=== PATIENT | male | born 1980 | race Caucasian/White ===

== ENCOUNTER 2022-12-11 01:06 | Emergency (ER) | payer OTHER ==
[2022-12-11 02:49] LABS: CORONAVIRUS COVID-19 NAA NEGATIVE (NEGATIVE); INFLUENZA A NAA NEGATIVE (NEGATIVE); INFLUENZA B NAA NEGATIVE (NEGATIVE); RESPIRATORY SYNCYTIAL VIR NAA NEGATIVE (NEGATIVE)
[2022-12-11 03:21] LABS: ACETAMINOPHEN <2.0 ug/mL; BLOOD UREA NITROGEN,BUN 8 mg/dL (7.0-18.0); CHLORIDE,CL 104 mmol/L (98-107); ESTIMATED GFR 65 mL/min (>60); GLUCOSE RANDOM 115 mg/dL (74-106); POTASSIUM,K 3.5 mmol/L (3.5-5.1); SODIUM,NA 140 mmol/L (136-148)
[2022-12-11] MEDS ORDERED: metFORMIN 500 MG Tab PO ONE ×2 (05:45→07:00)
[2022-12-11] MEDS: Citalopram 20 MG Tab PO SCH ×2 (07:41→09:22)
[2022-12-11 12:03] VITALS: BP 158/95; PULSE 102
== END 2022-12-11 12:27 ==
LOC: MW.ED 01:06
DX: R45.851 Suicidal ideations (principal); F17.210 Nicotine dependence, cigarettes, uncomplicated; Z79.899 Other long term (current) drug therapy; Z20.822 Contact with and (suspected) exposure to COVID-19
CPT/HCPCS: 0241U; 36415; 80053; 80143; 80179; 80305; 80307; 81001; 83735; 84443; 85025; 93005; 99285; A9270; 93010

== ENCOUNTER 2025-02-19 21:05 | Emergency (ER) | payer OTHER ==
[2025-02-19] MEDS: Diphtheria,Pertussis(Acell),Tetanus Vaccine 0.5 ML Syringe IM ONE (21:15)
[2025-02-19] MEDS: Lidocaine 1% 5 ML VIAL INJECT ONE (21:15)
[2025-02-19 21:16] VITALS: BP 156/96; PULSE 75
[2025-02-19] MEDS: Sulfamethoxazole/Trimethoprim 800-160 MG Tab PO ONE (21:29)
== END 2025-02-19 22:13 | disposition home or self-care (01) ==
LOC: MW.ED 21:05
DX: S90.455A Superficial foreign body, left lesser toe(s), initial encounter (principal); Z75.3 Unavailability and inaccessibility of health-care facilities; Z79.51 Long term (current) use of inhaled steroids; Z79.899 Other long term (current) drug therapy; Z23 Encounter for immunization; W45.8XXA Other foreign body or object entering through skin, initial encounter; Y93.89 Activity, other specified
CPT/HCPCS: 73660; 90471; 90715; 99284; A9270; J2003; 99282

== ENCOUNTER 2025-02-24 19:52 | Emergency (ER) | payer OTHER ==
[2025-02-24] MEDS: Amoxicillin/Clavulanate K 875-125 MG Tab PO ONE (21:29)
[2025-02-24 21:47] VITALS: BP 135/88; PULSE 86
== END 2025-02-24 21:47 | disposition home or self-care (01) ==
LOC: MW.ED 19:52
DX: J32.9 Chronic sinusitis, unspecified (principal); E66.9 Obesity, unspecified; M19.90 Unspecified osteoarthritis, unspecified site; Z79.51 Long term (current) use of inhaled steroids; Z79.899 Other long term (current) drug therapy; Z68.41 Body mass index [BMI] 40.0-44.9, adult
CPT/HCPCS: 87426; 99283; A9270; 99282

== ENCOUNTER 2025-02-27 11:19 | Emergency (ER) | payer OTHER ==
[2025-02-27 12:04] LABS: BASOPHILS ABSOLUTE AUTO 0.01 K/uL (0.00-0.20); BASOPHILS PERCENT AUTO 0.2 % (0.0-1.0); EOSINOPHILS ABSOLUTE AUTO 0.02 K/uL (0.00-0.45); EOSINOPHILS PERCENT AUTO 0.4 % (0.0-6.0); IMMATURE GRAN ABSOLUTE AUTO 0.02 K/uL (0.00-0.05); IMMATURE GRAN PERCENT AUTO 0.4 % (0.0-0.4); LYMPHOCYTES ABSOLUTE AUTO 0.68 K/uL (1.00-4.80); LYMPHOCYTES PERCENT AUTO 14.3 % (24.0-44.0); MEAN PLATELET VOLUME 10.2 fL (9.4-12.4); MONOCYTES ABSOLUTE AUTO 0.15 K/uL (0.00-0.80); MONOCYTES PERCENT AUTO 3.2 % (0.0-8.0); NEUTROPHILS ABSOLUTE AUTO 3.88 K/uL (1.80-7.70); NEUTROPHILS PERCENT AUTO 81.5 % (41.0-71.0); NRBC ABSOLUTE 0.00 K/uL (0.00-0.02); NRBC PERCENT 0.0 /100WBC (0.0-0.2); PLATELET COUNT,PLT 188 K/uL (150-400); RED BLOOD CELL COUNT 4.81 M/uL (4.52-5.90); WHITE BLOOD CELL COUNT,WBC 4.76 K/uL (3.9-11.3)
[2025-02-27] MEDS: Ketorolac 30 MG/ML SDV IVPUSH ONE (12:05)
[2025-02-27] MEDS: diphenhydrAMINE 50 MG/ML SDV IVPUSH ONE (12:27)
[2025-02-27 12:34] LABS: LACTIC ACID 0.8 mmol/L (0.4-2.0)
[2025-02-27 12:47] LABS: A/G RATIO 1.0 (0.9-1.6); ALANINE AMINOTRANSFERASE,ALT 239.0 IU/L (14-63); ASPARTATE AMNIOTRANSFERASE,AST 274.0 IU/L (15-37); BILIRUBIN TOTAL 0.3 mg/dL (0.2-1.0); BLOOD UREA NITROGEN,BUN 14.0 mg/dL (7.0-18.0); CARBON DIOXIDE,CO2 20.4 mmol/L (21.0-32.0); CHLORIDE,CL 96.0 mmol/L (98-107); CREATININE 1.6 mg/dL (0.8-1.3); EST CRCL DRUG DOSING (CG) 64.06 mL/min; GLUCOSE RANDOM 122.0 mg/dL (74-106); POTASSIUM,K 4.4 mmol/L (3.5-5.1); PROTEIN TOTAL,TP 7.0 g/dL (6.4-8.2); SODIUM,NA 129.0 mmol/L (136-148)
[2025-02-27 12:48] LABS: ESTIMATED GFR 55.0 mL/min (>60)
[2025-02-27 13:07] LABS: APPEARANCE,URINE CLEAR; GLUCOSE,URINE NEGATIVE (NEGATIVE); OCCULT BLOOD,URINE NEGATIVE (NEGATIVE)
[2025-02-27] MEDS: Magnesium Sulfate 2 GM/50 mL 2 GM in Premix Bag 1 BAG IV ONE (13:13)
[2025-02-27] MEDS: Iopamidol 755 MG/ML 500 ML Multipack Bottle IVPUSH STA (14:34)
[2025-02-27 15:53] VITALS: BP 126/61; PULSE 85
== END 2025-02-27 15:52 | disposition home or self-care (01) ==
LOC: MW.ED 11:19
DX: J30.9 Allergic rhinitis, unspecified (principal); R74.01 Elevation of levels of liver transaminase levels; Z88.0 Allergy status to penicillin; Z88.8 Allergy status to other drugs, medicaments and biological substances; Z79.899 Other long term (current) drug therapy
CPT/HCPCS: 36415; 71046; 74177; 80053; 81003; 83605; 83690; 83735; 85025; 85652; 86140; 86308; 87040; 87651; 96361; 96365; 96366; 96375; 99284; A9270; J1100; J1200; J1308; J1885; J3475; J7030; Q9967; 99283

== ENCOUNTER 2025-03-01 18:39 | Emergency (ER) | payer OTHER ==
[2025-03-01 18:49] LABS: BASOPHILS ABSOLUTE AUTO 0.04 K/uL (0.00-0.20); BASOPHILS PERCENT AUTO 0.3 % (0.0-1.0); EOSINOPHILS ABSOLUTE AUTO 0.00 K/uL (0.00-0.45); EOSINOPHILS PERCENT AUTO 0.0 % (0.0-6.0); IMMATURE GRAN ABSOLUTE AUTO 0.13 K/uL (0.00-0.05); IMMATURE GRAN PERCENT AUTO 0.9 % (0.0-0.4); LYMPHOCYTES ABSOLUTE AUTO 1.01 K/uL (1.00-4.80); LYMPHOCYTES PERCENT AUTO 6.8 % (24.0-44.0); MEAN PLATELET VOLUME 10.0 fL (9.4-12.4); MONOCYTES ABSOLUTE AUTO 1.44 K/uL (0.00-0.80); MONOCYTES PERCENT AUTO 9.7 % (0.0-8.0); NEUTROPHILS ABSOLUTE AUTO 12.17 K/uL (1.80-7.70); NEUTROPHILS PERCENT AUTO 82.3 % (41.0-71.0); NRBC ABSOLUTE 0.00 K/uL (0.00-0.02); NRBC PERCENT 0.0 /100WBC (0.0-0.2); PLATELET COUNT,PLT 252 K/uL (150-400); RED BLOOD CELL COUNT 4.69 M/uL (4.52-5.90); WHITE BLOOD CELL COUNT,WBC 14.79 K/uL (3.9-11.3)
[2025-03-01 18:52] LABS: BASE EXCESS VENOUS 4.5 (-2.0-3.0); BICARBONATE,VENOUS 30.0 mEq/L (22-29); PCO2 VENOUS 49.0 mmHG (41-51); PH,VENOUS 7.4 (7.32-7.43); PO2 VENOUS 29.0 mmHG (35-45)
[2025-03-01 19:01] LABS: INR 1.0 (0.86-1.11)
[2025-03-01 19:24] LABS: A/G RATIO 1.0 (0.9-1.6); ALANINE AMINOTRANSFERASE,ALT 393 IU/L (14-63); ASPARTATE AMNIOTRANSFERASE,AST 132 IU/L (15-37); BILIRUBIN TOTAL 0.6 mg/dL (0.2-1.0); BLOOD UREA NITROGEN,BUN 22 mg/dL (7.0-18.0); CARBON DIOXIDE,CO2 28.8 mmol/L (21.0-32.0); CHLORIDE,CL 106 mmol/L (98-107); CREATINE KINASE,CK 557 U/L (26-308); CREATININE 1.3 mg/dL (0.8-1.3); ESTIMATED GFR 70 mL/min (>60); ETHANOL BLOOD MEDICAL <3 mg/dL; GLUCOSE RANDOM 117 mg/dL (74-106); POTASSIUM,K 4.8 mmol/L (3.5-5.1); PRO B-TYPE NATRIUR PEPT,BNPPRO 106 pg/mL (0-125); PROTEIN TOTAL,TP 7.1 g/dL (6.4-8.2); SODIUM,NA 143 mmol/L (136-148)
[2025-03-01] MEDS: fentaNYL 100 MCG/2 ML SDV IVPUSH ONE (19:56)
[2025-03-01] MEDS: Iopamidol 755 MG/ML 500 ML Multipack Bottle IVPUSH STA (20:19)
[2025-03-01] MEDS: Rocuronium 100 MG/10 ML MDV IVPUSH ONE (20:37)
[2025-03-01] MEDS: Etomidate 2 MG/ML 20 ML SDV IVPUSH ONE (20:37)
[2025-03-01] MEDS: fentaNYL/Normal Saline 2,500 MCG in Premix Bag 1 BAG IV SCH (20:38)
[2025-03-01] MEDS: propofoL 1,000 MG/100 ML 100 ML IV SCH ×2 (20:38→22:05)
[2025-03-01] MEDS: Midazolam 5 MG/ML SDV IVPUSH ONE ×2 (20:39→21:17)
[2025-03-01] MEDS: Propofol 200 MG/20 ML SDV IVPUSH ONE ×4 (20:42→23:31)
[2025-03-01] MEDS: cefTRIAXone 2 GM in Water For Injection, Sterile 20 ML IVPUSH ONE (20:42)
[2025-03-01] MEDS: VANCOmycin 2 GM/400 ML 2 GM in Premix Bag 1 BAG IV ONE (20:43)
[2025-03-01 20:50] LABS: AMPHETAMINES SCREEN, URINE NEGATIVE (CUTOFF=500); BUPRENORPHINE SCREEN,URINE NEGATIVE (CUTOFF=10); METHADONE SCREEN, URINE NEGATIVE (CUTOFF=200); METHAMPHETAMINES SCREEN, URINE NEGATIVE (CUTOFF=500); OXYCODONE SCREEN,URINE NEGATIVE (CUT0FF=100); PCP SCREEN,URINE NEGATIVE (CUTOFF=25); THC SCREEN,URINE 20 NG/ML NEGATIVE (CUTOFF=50)
[2025-03-01] MEDS ORDERED: Rocuronium 100 MG/10 ML MDV IVPUSH ONE (21:14)
[2025-03-01] MEDS: Midazolam 5 MG/ML SDV ONE (21:18)
[2025-03-01] MEDS ORDERED: Rocuronium 100 MG/10 ML MDV ONE (21:23)
[2025-03-01] MEDS: propofoL 1,000 MG/100 ML 100 ML ONE (22:32)
[2025-03-01] MEDS ORDERED: Benzocaine 20% Topical Spray UD MUCMEM ONE (23:19)
[2025-03-01] MEDS: fentaNYL 100 MCG/2 ML SDV ONE (23:34)
[2025-03-01 23:58] VITALS: BP 113/69; PULSE 85
[2025-03-02] MEDS: propofoL 1,000 MG/100 ML 100 ML IV SCH (00:11)
[2025-03-02] MEDS: propofoL 1,000 MG/100 ML 100 ML ONE (00:13)
== END 2025-03-02 01:36 ==
LOC: MW.ED 18:39
DX: R41.82 Altered mental status, unspecified (principal); J69.0 Pneumonitis due to inhalation of food and vomit; R21 Rash and other nonspecific skin eruption; R94.5 Abnormal results of liver function studies; R23.3 Spontaneous ecchymoses; K21.9 Gastro-esophageal reflux disease without esophagitis; F17.210 Nicotine dependence, cigarettes, uncomplicated; Z88.1 Allergy status to other antibiotic agents; Z88.8 Allergy status to other drugs, medicaments and biological substances; Z79.51 Long term (current) use of inhaled steroids; Z79.899 Other long term (current) drug therapy
CPT/HCPCS: 31500; 36415; 51702; 62270; 70450; 70486; 70496; 70498; 71045; 71260; 72125; 74018; 74177; 80053; 80143; 80179; 80305; 80307; 82550; 82803; 83605; 83690; 83735; 83880; 84484; 85025; 85610; 87040; 93005; 96365; 96366; 96368; 96374; 96375; 96376; 99285; A9270; J0696; J2250; J2704; J3010; J3372; J3490; J7030; Q9967; 93010

== ENCOUNTER 2025-04-17 12:25 | Emergency (ER) | payer OTHER ==
[2025-04-17 13:02] LABS: BASOPHILS ABSOLUTE AUTO 0.05 K/uL (0.00-0.20); BASOPHILS PERCENT AUTO 0.9 % (0.0-1.0); EOSINOPHILS ABSOLUTE AUTO 0.11 K/uL (0.00-0.45); EOSINOPHILS PERCENT AUTO 1.9 % (0.0-6.0); IMMATURE GRAN ABSOLUTE AUTO 0.03 K/uL (0.00-0.05); IMMATURE GRAN PERCENT AUTO 0.5 % (0.0-0.4); LYMPHOCYTES ABSOLUTE AUTO 1.37 K/uL (1.00-4.80); LYMPHOCYTES PERCENT AUTO 24.0 % (24.0-44.0); MEAN PLATELET VOLUME 9.9 fL (9.4-12.4); MONOCYTES ABSOLUTE AUTO 0.52 K/uL (0.00-0.80); MONOCYTES PERCENT AUTO 9.1 % (0.0-8.0); NEUTROPHILS ABSOLUTE AUTO 3.62 K/uL (1.80-7.70); NEUTROPHILS PERCENT AUTO 63.6 % (41.0-71.0); NRBC ABSOLUTE 0.00 K/uL (0.00-0.02); NRBC PERCENT 0.0 /100WBC (0.0-0.2); PLATELET COUNT,PLT 280 K/uL (150-400); RED BLOOD CELL COUNT 4.90 M/uL (4.52-5.90); WHITE BLOOD CELL COUNT,WBC 5.70 K/uL (3.9-11.3)
[2025-04-17] MEDS ORDERED: Naloxone 0.4 MG/ML SDV IVPUSH PRN (13:04)
[2025-04-17 13:07] LABS: INR 0.93 (0.86-1.11); PTT,PARTIAL THROMBOPLSTIN TIME 26.1 SEC (23.9-30.7)
[2025-04-17 13:23] LABS: A/G RATIO 1.2 (0.9-1.6); ALANINE AMINOTRANSFERASE,ALT 58.0 IU/L (14-63); ASPARTATE AMNIOTRANSFERASE,AST 36.0 IU/L (15-37); BILIRUBIN TOTAL 0.2 mg/dL (0.2-1.0); BLOOD UREA NITROGEN,BUN 8.0 mg/dL (7.0-18.0); CARBON DIOXIDE,CO2 26.1 mmol/L (21.0-32.0); CHLORIDE,CL 104.0 mmol/L (98-107); CREATININE 1.0 mg/dL (0.8-1.3); EST CRCL DRUG DOSING (CG) 102.49 mL/min; GLUCOSE RANDOM 99.0 mg/dL (74-106); POTASSIUM,K 3.9 mmol/L (3.5-5.1); PROTEIN TOTAL,TP 6.9 g/dL (6.4-8.2); SODIUM,NA 139.0 mmol/L (136-148)
[2025-04-17] MEDS: diphenhydrAMINE 50 MG/ML SDV IVPUSH ONE (13:23)
[2025-04-17 13:24] LABS: ESTIMATED GFR 96.0 mL/min (>60)
[2025-04-17] MEDS: Ketorolac 30 MG/ML SDV IVPUSH ONE (13:50)
[2025-04-17 15:14] VITALS: BP 151/87; PULSE 90
== END 2025-04-17 15:17 | disposition home or self-care (01) ==
LOC: MW.ED 12:25
DX: G43.909 Migraine, unspecified, not intractable, without status migrainosus (principal); K21.9 Gastro-esophageal reflux disease without esophagitis; E66.9 Obesity, unspecified; Z79.899 Other long term (current) drug therapy; Z88.0 Allergy status to penicillin; Z88.1 Allergy status to other antibiotic agents; Z88.5 Allergy status to narcotic agent; Z68.39 Body mass index [BMI] 39.0-39.9, adult
CPT/HCPCS: 36415; 70450; 80053; 85025; 85610; 85730; 96361; 96374; 96375; 99284; J1200; J1885; J2765; J7040; 99283